=== PATIENT | male | born 1960 | race Caucasian/White ===

== ENCOUNTER 2024-11-16 11:08 | Emergency (ER) | payer MEDICAID, SELFPAY ==
[2024-11-16 11:17] VITALS: BP 152/107; PULSE 78; RESP 20; TEMP 36.5; O2SAT 95
--- NOTE | 2024-11-16 11:22 | XRR_ITS ---
PROCEDURE INFORMATION: Exam: XR Chest Exam date and time: 11/16/2024 11:29 AM Age: 64 years old Clinical indication: Cough; RT rib pain TECHNIQUE: Imaging protocol: Radiologic exam of the chest. Views: 1 view. COMPARISON: No relevant prior studies available. FINDINGS: Lungs: Minor bibasilar scarring. No consolidation. Pleural spaces: Unremarkable. No pleural effusion. No pneumothorax. Heart/Mediastinum: Unremarkable. No cardiomegaly. Bones/joints: Visualized osseous structures are intact. XR/XR chest 1V portable [id number] IMPRESSION: No acute findings.
--- NOTE | 2024-11-16 11:28 | W.ED.GENADLT ---
HPI - General Adult General: Chief complaint: General Medical Stated complaint: rt side abd pain Time Seen by Provider: 11/16/24 11:21 History of Present Illness: 64-year-old male presents emergency room stating a chest pain yesterday is worse when he takes a deep breath or cough he says is nearly completely resolved today he can still reproduce it with coughing but no longer with a deep breath. Patient is a former heavy smoker he now vapes. He denies any hemoptysis or productive cough no fever sweats or chills no radiation of the pain. Beyond the coughing and deep breath is not noticed anything else that exacerbates it. Associated symptoms: Deny chest pain, dyspnea or rash Related Data Previous Rx's ?Medication ?Instructions ?Recorded diclofenac sodium 75 mg 75 mg PO Q12H PRN pain #20 tabs 11/16/24 tablet,delayed release Allergies Allergy/AdvReac Type Severity Reaction Status Date / Time No Known Allergies Allergy Verified 11/16/24 11:21 Review of Systems Const: Denies: fever(s) or chills Card: Denies: chest pain Resp: Denies: dyspnea GI: Denies: abdominal pain : Denies: dysuria, urinary frequency or urinary urgency Musc: Denies: neck pain or back pain Skin/Breast: Denies: rash Physical Exam Const: GENERAL APPEARANCE: cooperative ORIENTATION/CONSCIOUSNESS: Yes awake, Yes oriented to person, Yes oriented to place and Yes oriented to time HENMT: COMMON NORMALS: normocephalic, atraumatic and hearing grossly normal bilaterally HEAD & SCALP: normocephalic and atraumatic Resp: COMMON NORMALS: normal respiratory effort, No retractions, No use of accessory muscles and clear to auscultation bilaterally AUSCULTATION: clear to auscultation bilaterally Cardio: COMMON NORMALS: regular rate, regular rhythm and No murmurs present (Cardio) RATE: regular rate RHYTHM: regular rhythm GI: COMMON NORMALS: Soft to palpation and No hepatosplenomegaly present AUSCULTATION: Yes normoactive bowel sounds PALPATION: Yes Soft to palpation, No Tenderness to palpation present (GI), No Guarding due to palpation present (GI) and Yes No hepatosplenomegaly present Extremity: COMMON NORMALS: normal to inspection, capillary refill normal, no clubbing, cyanosis or edema, no calf tenderness and no pedal edema Neuro: SENSORIUM/ORIENTATION: Yes oriented to person, Yes oriented to place and Yes oriented to time Skin: COMMON NORMALS: no rashes or lesions noted GENERAL SKIN EXAM: no rashes or lesions noted Course Vital Signs: Vital signs: Vital Signs Temperature 97.7 F 11/16/24 11:17 Pulse Rate 76 11/16/24 11:49 Respiratory Rate 20 H 11/16/24 11:17 Blood Pressure 146/84 11/16/24 11:49 Pulse Oximetry 91 11/16/24 11:49 Oxygen Delivery Me thod Room Air 11/16/24 11:17 MDM - General Adult Medical Decision Making Chest x-ray normal exam is also normal. Can reproduce his pain with cough minimally with deep inspiration. He states this is improved since yesterday will start him on diclofenac as needed return if he has any further problems. He is not short of breath at this time noted his oxygen sat is 91% suspect that is due to his history of smoking. Medical Records I reviewed the patient's medical records. Lab Data Radiology Impressions Chest X-Ray 11/16/24 11:22 IMPRESSION: No acute findings. All radiology interpretation(s) finalized by discharge Discharge Plan Discharge Patient Disposition: Home Clinical Impression: Rib pain on right side Condition: Stable Prescriptions: New diclofenac sodium 75 mg tablet,delayed release (DR/EC) 75 mg PO Q12H PRN (Reason: pain) Qty: 20 0RF Discharge Orders: Discharge ED (Routine); Ordered 11/16/24 Ordered By: Peewee Liriano Discharge Diet: Usual diet Discharge Activity: Resume usual activity Patient Instructions: Opioid Safety, Pain Management Activity Restrictions/Additional Instructions: Thank you for choosing [facility] for your healthcare needs today. It is very important that you follow up as instructed or that you return to the Emergency Department should you have concerns or if your condition changes or worsens in any way. You are seen in the emergency room with complaint of right-sided rib pain when you cough. Since your symptoms had already improved and your chest x-ray was normal recommend use diclofenac as needed follow-up with your primary care doctor return if you have worsening or changes symptoms Print Language: Greenlandic Coding Level of Care Code ED Deli Manager for Marilu Washington
[2024-11-16 11:49] VITALS: BP 146/84; PULSE 76; O2SAT 91
== END 2024-11-16 11:49 | disposition home or self-care (01) ==
PROVIDERS: Emergency Provider Family Medicine
DX: R07.81 Pleurodynia (principal)
CPT/HCPCS: 71045; 99283

== ENCOUNTER 2025-04-21 02:09 | Emergency (ER) | payer MEDICARE, MEDICAID, SELFPAY ==
[2025-04-21 02:10] VITALS: BP 126/89; PULSE 80; RESP 22; TEMP 36.5; O2SAT 97
[2025-04-21 02:16] VITALS: BP 126/89; PULSE 75; O2SAT 98
--- NOTE | 2025-04-21 02:40 | XRR_ITS ---
PROCEDURE INFORMATION: Exam: XR Chest Exam date and time: 04/21/2025 2:41 AM Age: 65 years old Clinical indication: Shortness of breath; Right-sided; C/O persistent RT sided rib pain with SOB after a fall three days ago. ; Additional info: SOB R sided pain TECHNIQUE: Imaging protocol: Radiologic exam of the chest. Views: 1 view. COMPARISON: CR XR chest 1V portable [id number] 11/16/2024 11:29 AM FINDINGS: Lungs: Bilateral lower lobe opacities, [id number]-right. Pleural spaces: Suspect pleural effusions. Heart/Mediastinum: Cardiomediastinal silhouette is prominent but stable. Bones/joints: No acute fracture. Chronic left rib fractures. Chronic distal right clavicular deformity. XR/XR chest 1V portable [id number] IMPRESSION: Bilateral lower lobe opacities, [id number]. Suspect pleural effusions.
--- NOTE | 2025-04-21 02:41 | ECG_ITS ---
[employer] [id number] Test Date: 2025-04-21 Pat Name: Lane Ng Department: Room: Gender: Male Staffing Analyst: : 1960 Requested By: Julio César Jones Order Number: [id number] Morton MD: Petey Hobbs M.D. Measurements Intervals [place] Rate: 71 P: 88 NM: 136 QRS: -27 QRSD: 96 T: 59 QT: 378 QTc: 413 Interpretive Statements SINUS RHYTHM BORDERLINE LEFT AXIS DEVIATION [QRS AXIS < -20] No previous ECG available for comparison Electronically Signed On 04-21-2025 12:58:42 CDT by Petey Hobbs M.D. [id number]
--- NOTE | 2025-04-21 02:43 | ED_ITS ---
HPI - SOB/Dyspnea 2 General: Chief Complaint: Shortness of Breath/Dyspnea Stated Complaint: RIB PAIN Time Seen by Provider: 04/21/25 02:13 History of Present Illness: HPI Narrative: Patient is a 65-year-old male presenting with acute chest pain that began around 11:00pm today. He describes the pain as internal and severe, stating I've never hurt like this before. He denies taking any pain medication at home, reporting that he doesn't have any available. Patient reports minimal cough with possible small amount of mucus production, though he avoids coughing due to pain exacerbation. He denies any known fever. He states that he fell off his scooter 4 days or so ago, but did not have immediate pain at that time. Related Data Previous Rx's ?Medication ?Instructions ?Recorded diclofenac sodium 75 mg 75 mg PO Q12H PRN pain #20 t abs 11/16/24 tablet,delayed release albuterol sulfate 90 mcg/actuation 2 inh inhalation Q4 H PRN shortness 04/21/25 aerosol inhaler of breath or wheezing #6.7 g giuseppe hydrocodone 5 mg-acetaminophen 325 1 tab PO Q8H PRN pa in #7 tabs 04/21/25 mg tablet levofloxacin 750 mg tablet 750 mg PO DAILY 7 days #7 t abs 04/21/25 methylprednisolone 4 mg tablets in See Rx Instructions PO .COMPLEX 04/21/25 a dose pack (Medrol (Paul)) #21 ea Allergies Allergy/AdvReac Type Severity Reaction Status Date / Time No Known Allergies Allergy Verified 11/16/24 11:21 Physical Exam 2 Const: COMMON NORMALS: no acute distress GENERAL APPEARANCE: cooperative; not frail appearing HENMT: COMMON NORMALS: normocephalic, atraumatic and Normal external nose present HEAD & SCALP: normocephalic and atraumatic FACE & SINUS: normal facial exam and face symmetric NOSE: Normal external nose present Eye: COMMON NORMALS: Equal, round and reactive pupils present and EOMs intact bilaterally PUPIL: Yes Equal, round and reactive pupils present Neck/C-Spine: GENERAL: Yes trachea midline Chest: CHEST: Yes Symmetrical chest wall rise Resp: COMMON NORMALS: clear to auscultation bilaterally EFFORT & INSPECTION: Yes tachypneic AUSCULTATION: clear to auscultation bilaterally Cardio: COMMON NORMALS: regular rate and regular rhythm RATE: regular rate RHYTHM: regular rhythm GI: COMMON NORMALS: Normal to inspection, nondistended, normoactive bowel sounds present Extremity: COMMON NORMALS: no pedal edema Neuro: SKYLER COMA SCALE: document GCS findings Skyler coma scale eye opening: Spontaneous Skyler coma scale verbal response: Orientated Garfield coma scale motor response: Obey commands Garfield coma scale total score: 15 S ENSORY EXAM: Yes extremities (intact) Psych: COMMON NORMALS: speech normal SPEECH: Yes normal speech Skin: COMMON NORMALS: no rashes or lesions noted GENERAL SKIN EXAM: no rashes or lesions noted Course 2 Vital Signs: Vital signs: Vital Signs Temperature 97.7 F 04/21/25 02:10 Pulse Rate 78 04/21/25 03:30 Respiratory Rate 20 H 04/21/25 03:15 Blood Pressure 117/89 04/21/25 03:30 Pulse Oximetry 91 04/21/25 03:30 Oxygen Delivery Me thod Room Air 04/21/25 02:45 MDM - SOB/Dyspnea Medical Decision Making The patient's vital signs are stable. He is not hypoxic or tachycardic. He holds his right side when he coughs. There is no deformity. There is minimal tenderness. CBC is normal. BMP is nonactionable. Lactic acid is normal. Swabs for COVID flu RSV are negative. Troponin is negative. Chest x-ray reveals bilateral lower lobe opacities left greater than right. Patient will be given antibiotics. Steroids. Inhaler. To return for any worsening symptoms. Lab Data 04/21/25 02:15 04/21/25 02:15 Labs/Radiology: Radiology Impressions Chest X-Ray 04/21/25 02:40 IMPRESSION: Bilateral lower lobe opacities, [id number]-right. Suspect pleural effusions. Laboratory Results WBC 11.37 10^3/uL (3.29-11.43) 04/21/25 02:15 RBC 4.56 10^6/uL (3.85-5.65) 04/21/25 02:15 Hgb 14.20 g/dL (11.27-16.99) 04/21/25 02:15 Hct 42.5 % (37-53) 04/21/25 02:15 MCV 93.2 fl (82-101) 04/21/25 02:15 MCH 31.1 pg (27-33) 04/21/25 02:15 MCHC 33.4 g/dL (30-55) 04/21/25 02:15 RDW 13.8 % (12.1-15.1) 04/21/25 02:15 Plt Count 193 10^3/cmm (157-399) 04/21/25 02:15 MPV 11.0 fL (7.4-10.4) H 04/21/25 02:15 Neut % (Auto) 75.1 % 04/21/25 02:15 Lymph % (Auto) 15.2 % 04/21/25 02:15 Dawson % (Auto) 7.3 % 04/21/25 02:15 Eos % (Auto) 1.6 % 04/21/25 02:15 Baso % (Auto) 0.4 % 04/21/25 02:15 Neut # (Auto) 8.54 10^3/uL (1.8-7.7) H 04/21/25 02:15 Lymph # (Auto) 1.7 10^3/uL (0.8-4.8) 04/21/25 02:15 Dawson # (Auto) 0.8 10^3/uL (0.2-0.9) 04/21/25 02:15 Eos # (Auto) 0.2 10^3/uL (0.0-0.8) 04/21/25 02:15 Baso # (Auto) 0.1 10^3/uL (0.0-0.1) 04/21/25 02:15 Nucleated RBC % (auto) 0 % 04/21/25 02:15 Nucleated RBCs # 0.0 /100WBC 04/21/25 02:15 Sodium 140 mmol/L (136-145) 04/21/25 02:15 Potassium 4.1 mmol/L (3.5-5.1) 04/21/25 02:15 Chloride 107 mmol/L (98-107) 04/21/25 02:15 Carbon Dioxide 20 mmol/L (22-29) L 04/21/25 02:15 Anion Gap 17.1 (5-19) 04/21/25 02:15 BUN 16 mg/dL (8-23) 04/21/25 02:15 Creatinine 1.1 mg/dL (0.7-1.2) 04/21/25 02:15 GFR Calculation 67.0 mL/min (90-130) L 04/21/25 02:15 Glucose 139 mg/dL (65-115) H 04/21/25 02:15 Calculated Osmolality 293 mOsm/kg (285-295) 04/21/25 02:15 Lactic Acid 1.7 mmol/L (0.5-2.2) 04/21/25 02:15 Calcium 9.3 mg/dL (8.5-10.5) 04/21/25 02:15 Total Bilirubin 0.5 mg/dL (0.15-1.2) 04/21/25 02:15 AST 24 U/L (0-40) 04/21/25 02:15 ALT 15 U/L (0-41) 04/21/25 02:15 Alkaline Phosphatase 108 U/L (40-130) 04/21/25 02:15 Troponin T Baseline 10 ng/L (0-15) 04/21/25 02:15 NT-Pro-B Natriuret Pep 534 pg/mL (0-125) H 04/21/25 02:15 Total Protein 7.3 g/dL (6.6-8.7) 04/21/25 02:15 Albumin 3.7 g/dL (3.5-5.2) 04/21/25 02:15 Globulin 3.6 g/dL (1.3-4.6) 04/21/25 02:15 Influenza A (PCR) Negative (Negative) 04/21/25 03:15 Influenza Type B (PCR) Negative (Negative) 04/21/25 03:15 RSV (PCR) Negative (Negative) 04/21/25 03:15 SARS-CoV-2 (PCR) Negative (Negative) 04/21/25 03:15 All radiology interpretation(s) finalized by discharge Discharge Plan Discharge Patient Disposition: Home Clinical Impression: Pneumonia Qualifiers: Laterality: bilateral Condition: Stable Prescriptions: New levofloxacin 750 mg tablet 750 mg PO DAILY 7 Days Qty: 7 0RF albuterol sulfate 90 mcg/actuation HFA aerosol inhaler 2 inh inhalation Q4H PRN (Reason: shortness of breath or wheezing) Qty: 6.7 1RF methylprednisolone [Medrol (Paul)] 4 mg tablets,dose pack See Rx Instructions .ROUTE .COMPLEX Qty: 21 0RF Rx Instructions: orally per package directions hydrocodone-acetaminophen 5-325 mg tablet 1 tab PO Q8H PRN (Reason: pain) Qty: 7 0RF No Action diclofenac sodium 75 mg tablet,delayed release (DR/EC) 75 mg PO Q12H PRN (Reason: pain) Qty: 20 0RF Discharge Orders: Discharge ED (Routine); Ordered 04/21/25 Ordered By: Julio César Crump Patient Instructions: Pleurisy (ED), Pneumonia (ED), Opioid Safety, Pain Management, Patient Portal & Minor Instructions Activity Restrictions/Additional Instructions: Return for fever despite 2-3 doses of antibiotics, worsening pain despite treatment, worsening shortness of breath despite treatment, any other concerning symptoms. Use the inhaler 4 times daily while awake scheduled for the first 48 hours, then as needed. Other medications as directed. Print Language: Citizen [place] Coding Level of Care Code ED Nurse Advisor for Marilu Washington
[2025-04-21 02:45] VITALS: PULSE 75; O2SAT 97
[2025-04-21 03:01] LABS: Hematocrit 42.5 % (37-53); Hemoglobin 14.20 g/dL (11.27-16.99); Mean Corpuscular HGB Conc 33.4 g/dL (30-55); Mean Corpuscular Hemoglobin 31.1 pg (27-33); Mean Corpuscular Volume 93.2 fl (82-101); Nucleated Red Blood Cells % 0 %; Platelet Count 193 10^3/cmm (157-399); Red Blood Count 4.56 10^6/uL (3.85-5.65); White Blood Count 11.37 10^3/uL (3.29-11.43)
[2025-04-21 03:15] VITALS: BP 117/89; PULSE 81; RESP 20; O2SAT 94
[2025-04-21] MEDS: morphine 4 mg/mL SDV 1 mL IVP (03:18)
[2025-04-21] MEDS: ondansetron 2 mg/ML SDV 2 mL 4 MG IVP (03:18)
[2025-04-21 03:21] LABS: Lactic Sepsis W/Reflex 1.7 mmol/L (0.5-2.2)
[2025-04-21 03:23] LABS: Troponin(5th) Baseline 10 ng/L (0-15)
[2025-04-21 03:30] VITALS: BP 117/89; PULSE 78; O2SAT 91
[2025-04-21 03:31] LABS: Alanine Aminotransferase 15 U/L (0-41); Albumin Level 3.7 g/dL (3.5-5.2); Alkaline Phosphatase 108 U/L (40-130); Anion Gap 17.1 (5-19); Aspartate Amino Transferase 24 U/L (0-40); Blood Urea Nitrogen 16 mg/dL (8-23); Calcium 9.3 mg/dL (8.5-10.5); Carbon Dioxide 20 mmol/L (22-29); Chloride 107 mmol/L (98-107); Globulin 3.6 g/dL (1.3-4.6); Glucose 139 mg/dL (65-115); NT Pro B Type Natriuretic Pept 534 pg/mL (0-125); Osmolality Calculated 293 mOsm/kg (285-295); Potassium 4.1 mmol/L (3.5-5.1); Sodium 140 mmol/L (136-145); Total Protein 7.3 g/dL (6.6-8.7)
[2025-04-21 04:05] LABS: Respiratory Syncytial Virus Ce NEGATIVE (Negative); SARS-CoV-2 PCR NEGATIVE (Negative)
[2025-04-21 05:03] VITALS: BP 126/78; PULSE 78; O2SAT 93
== END 2025-04-21 05:22 | disposition home or self-care (01) ==
PROVIDERS: Emergency Provider Emergency Medicine
DX: J18.9 Pneumonia, unspecified organism (principal); Z11.52 Encounter for screening for COVID-19
CPT/HCPCS: 36415; 71045; 80053; 83605; 83880; 84484; 85025; 87040; 87637; 93005; 96374; 96375; 99285; J1100; J1885; J2270; J2405; J9999

== ENCOUNTER 2025-07-09 12:42 | Emergency (ER) | payer MEDICARE, MEDICAID, SELFPAY ==
[2025-07-09] VITALS (19 sets, daily range): BP systolic 120–152; BP diastolic 72–121; PULSE 94–120; RESP 18–22; TEMP 37.2; O2SAT 88–99; BMI 29.0
--- NOTE | 2025-07-09 12:46 | ECG_ITS ---
[employer] Test Date: 2025-07-09 Pat Name: Lane Ng Department: Room: Gender: Male Sports Marketing Internship: : 1960 Requested By: Vesna Ashton Order Number: [id number] Morton MD: Es Atwood M.D. Measurements Intervals [place] Rate: 97 P: 54 MS: 137 QRS: -13 QRSD: 98 T: 53 QT: 341 QTc: 434 Interpretive Statements SINUS RHYTHM INCOMPLETE RIGHT BUNDLE BRANCH BLOCK [90+ ms QRS DURATION, TERMINAL R IN V1/V2, 40+ ms S IN I/aVL/V4/V5/V6] Compared to ECG 04/21/2025 03:06:21 Incomplete right bundle-branch block now present Electronically Signed On 07-09-2025 21:36:33 PILOT FUEL ENGINEER by Es Atwood M.D. [email or web address] [id number]
--- NOTE | 2025-07-09 12:46 | XR_ITS ---
WS: [id number] Right elbow, 3 views, 07/09/2025 Clinical Data: trauma Comparison: None. Findings: No fractures or dislocations are seen. The radial head is normal. The soft tissues are unremarkable. There is spurring and irregularity of the articulation between the distal humerus and the radial head and coronoid process. There may be a foreign body, possible small needle or wire in the lateral subcutaneous tissue of the proximal right forearm. XR/XR elbow RT min 3V* [id number] Impression: 1. Osteoarthritis of the right elbow. 2. Negative for fracture or dislocation.
--- NOTE | 2025-07-09 12:46 | XR_ITS ---
WS: [id number] Portable AP upright chest, 07/09/2025 Clinical Data: psych clearance Comparison: Portable chest, 04/21/2025 Findings: There are bilateral lower lobe opacities overlying both diaphragms which could represent atelectasis and/or minimal pneumonia. No nodules, masses or effusions are seen. The heart is normal. The pulmonary vascularity is not increased. No pneumothorax is seen. The aortic arch and descending thoracic aorta show tortuosity. There are old left lower rib fractures. XR/XR chest 1V portable [id number] Impression: 1. Minimal bilateral lower lobe opacities. 2. Atherosclerosis.
--- NOTE | 2025-07-09 12:47 | CT_ITS ---
WS: [id number] CT CHEST TECHNIQUE: Noncontrast CT of the chest with coronal and sagittal reformatted images. CLINICAL INFORMATION: Traumatic chest pain COMPARISON: None. DLP: 399.[address] scans at [facility] use at least one of these dose optimization techniques: automated exposure control; mA and/or kV adjustment per patient size (includes targeted exams where dose is matched to clinical indication); or iterative reconstruction. FINDINGS: Multiple chronic appearing right-sided rib fractures with callus formation. No visualized acute RIGHT rib fractures. No pneumothorax. Atelectasis in the lung bases. Shallow inspiration. Aortic calcification. Normal caliber thoracic aorta. Coronary calcification. No mediastinal or hilar lymphadenopathy. No axillary lymphadenopathy. Adrenal glands are normal. Air-fluid level in the stomach. Mild thoracic curve and kyphosis. Chronic appearing anterior wedging in the lower thoracic and upper lumbar spine with endplate Schmorl's nodes. CT/CT chest wo con [id number] IMPRESSION: 1. Multiple chronic appearing RIGHT rib fractures with callus formation. No vi sualized acute fractures. 2. Shallow inspiration with bibasilar atelectasis.
--- NOTE | 2025-07-09 12:47 | CT_ITS ---
WS: [id number] CT HEAD TECHNIQUE: Noncontrast CT of the head obtained from the skullbase to the vertex. CLINICAL INFORMATION: fall, head injury COMPARISON: None. DLP: 1104.[address] scans at [facility] use at least one of these dose optimization techniques: automated exposure control; mA and/or kV adjustment per patient size (includes targeted exams where dose is matched to clinical indication); or iterative reconstruction. FINDINGS: No evidence of intracranial hemorrhage or mass effect. Ventricular system and basal cisterns are patent. Mild small vessel changes with mild parenchymal volume loss. No extra-axial fluid collections. No evidence of mass or mass effect. Vascular calcification. Mucosal thickening with partial opacification of the ethmoid air cells. Mucosal thickening RIGHT mastoid tip. LEFT mastoid air cells are well aerated. CT/CT head wo con* [id number] IMPRESSION: 1. No evidence of intracranial hemorrhage or mass effect. 2. No acute intracranial findings.
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
[2025-07-09] MEDS: tetanus-dipt-pertussis 0.5 mL SDV IM (14:00)
[2025-07-09 14:26] LABS: PCP Screen Urine Negative (Negative)
[2025-07-09 14:46] LABS: Respiratory Syncytial Virus Ce NEGATIVE (Negative); SARS-CoV-2 PCR NEGATIVE (Negative)
--- NOTE | 2025-07-09 15:28 | PC.NURSE ---
96 hr rights reviewed with pt @[id number] with assistance of [facility] fire prevention officer Damian. All education reviewed with pt at this time. Pt verbalized understanding to hold parameters. Pt copy was left with pt @bedside. [place] and drink provided.
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
[2025-07-09 16:37] LABS: Hematocrit 44.6 % (37-53); Hemoglobin 14.80 g/dL (11.27-16.99); Mean Corpuscular HGB Conc 33.2 g/dL (30-55); Mean Corpuscular Hemoglobin 31.7 pg (27-33); Mean Corpuscular Volume 95.5 fl (82-101); Nucleated Red Blood Cells % 0 %; Platelet Count 204 10^3/cmm (157-399); Red Blood Count 4.67 10^6/uL (3.85-5.65); White Blood Count 10.17 10^3/uL (3.29-11.43)
--- NOTE | 2025-07-09 17:03 | W.PM.PSYCONS ---
Providers/Reason for Consult Consulting Physican/Specialty*: Itz Morales MD/Psychiatry Reason for Consult*: confusion, involuntary hold. Psych Consult HPI History of Present Illness Lane Ng is a 65 year old male who presented after a fall to the emergency department and was also placed on an involuntary hold after being evaluated at the [facility]. The patient had it endorsed using methamphetamine. He had reported having a fall. He had reported having no thoughts of hurting himself or others. He had reported that he was hard of hearing. He had endorsed no prior history of psychiatric issues and no prior history of inpatient hospitalizations. He had reported having no problems with his memory. He had reported that he was irritated that he had been placed on a hold here. Meds Home Medications and Allergies Home Medications ?Medication ?Instructions ?Recorded ?Confirmed ?Last Taken ?Type diclofenac sodium 75 mg 75 mg PO Q12H PRN pain #20 tabs 11/16/24 Unknown Rx tablet,delayed release albuterol sulfate 90 mcg/actuation 2 inh inhalation Q4H PRN shortness 04/21/25 Unknown Rx aerosol inhaler of breath or wheezing #6.7 grams hydrocodone 5 mg-acetaminophen 325 1 tab PO Q8H PRN pain #7 tabs 04/21/25 Unknown Rx mg tablet methylprednisolone 4 mg tablets in See Rx Instructions PO .COMPLEX 04/21/25 Unknown Rx a dose pack (Medrol (Paul)) #21 ea Allergies Allergy/AdvReac Type Severity Reaction Status Date / Time No Known Allergies Allergy Verified 07/09/25 12:56 Mental Status Exam MSE Comments: Disheveled appearance but appeared his stated age with limited hygiene and did not no acute distress. His mood was described as good. His affect appeared somewhat euthymic. His thought process was linear, logical, and goal-directed. His speech was normal in regards to rate, rhythm, and prosody. His thought content revealed no suicidal or homicidal ideation. There was no clear evidence of delusional thinking. He did not appear to be responding to internal stimuli. His attention span appeared fair. He was alert and oriented to person, place, time, and situation. The patient knew the month the date day of the week and the year. His insight might have been limited. His judgment appeared fair. His impulse control appeared adequate. There was no evidence of fluctuating consciousness. Vitals/I&O/Wt Last Vital Signs Temp 98.9 F 12/17/25 12:51 Pulse 120 H 07/09/25 15:17 Resp 18 07/09/25 13:38 BP 147/72 07/09/25 15:17 Pulse Ox 92 07/09/25 15:17 O2 Del Method Room Air 07/09/25 15:17 O2 Flow Rate 1 07/09/25 13:38 07/09/25 07/09/25 07/09/25 06:59 14:59 22:59 Intake Total 0 / 0 Balance 0 / 0 Weight last 48 hrs Weight 81.647 kg Data NPU 07/09/25 16:29 07/09/25 16:29 A&P Assessment and plan 1. Head injury: 2. Facial laceration: Plan: 65-year-old male positive for amphetamines presented with some problems with his hearing but does not appear confused at this time and has a place to go currently. #1. Will rescind the 96 hour hold. Patient to return home when stabilized. PDMP PDMP Reviewed: Not Reviewed Attestations NPU Medical Necessity Statement*: inpatient psychiatric hospitalization is not necessary. 96 hold removed by this telegraphic typewriter repairer. Coding Level of Care Code Acute Code for g Fwd Diagnoses Head injury S09.90XA Facial laceration S01.81XA
[2025-07-09 17:04] LABS: Alanine Aminotransferase 23 U/L (0-41); Albumin Level 4.1 g/dL (3.5-5.2); Alkaline Phosphatase 120 U/L (40-130); Anion Gap 18.1 (5-19); Aspartate Amino Transferase 47 U/L (0-40); Blood Urea Nitrogen 24 mg/dL (8-23); Calcium 9.5 mg/dL (8.5-10.5); Carbon Dioxide 18 mmol/L (22-29); Chloride 101 mmol/L (98-107); Globulin 3.2 g/dL (1.3-4.6); Glucose 124 mg/dL (65-115); Osmolality Calculated 281 mOsm/kg (285-295); Potassium 4.1 mmol/L (3.5-5.1); Sodium 133 mmol/L (136-145); Thyroid Stimulating Hormone 9.71 uIU/mL (0.27-4.20); Total Protein 7.3 g/dL (6.6-8.7)
[2025-07-09 17:05] LABS: Acetaminophen < 5.0 ug/mL (10-30); Alcohol Level < 10 mg/dL (0-10); Salicylate < 0.3 mg/dL (3-10)
== END 2025-07-09 17:30 | disposition home or self-care (01) ==
PROVIDERS: Emergency Provider Emergency Medicine
DX: S09.90XA Unspecified injury of head, initial encounter (principal); S01.81XA Laceration without foreign body of other part of head, initial encounter; S20.20XA Contusion of thorax, unspecified, initial encounter; S50.01XA Contusion of right elbow, initial encounter; Z11.52 Encounter for screening for COVID-19; V00.141A Fall from scooter (nonmotorized), initial encounter; S22.41XA Multiple fractures of ribs, right side, initial encounter for closed fracture
CPT/HCPCS: 36415; 70450; 71045; 71250; 73080; 80053; 80306; 80307; 84443; 85025; 87637; 90471; 90715; 93005; 94640; 99285; J7613; J9999